=== PATIENT | female | born 1940 | race Caucasian/White ===

== ENCOUNTER 2017-02-01 11:18 | Emergency (ER) | payer OTHER, BC ==
[~2017-02-01] VITALS: Ht 162.6 cm; Wt 83.5 kg
[~2017-02-01 11:18] MED LIST: BALMEX 11.3% D113 GM TP; CHILD ASPIRIN81 M1 PO; DULOXETINE HCL20 MG PO; FERROUS SULFAT325 MG PO; FLONASE16 G1 BOTH NARES; KLOR-CON M2020 MEQ PO; LASIX80 MG PO; LISINOPRIL2.5 MG PO; LORATADINE10 M2 PO; LYRICA75 MG PO; METFORMIN HCL500 MG PO; METOPROLOL SUCC25 MG PO; MUCUS RELIEF200 MG PO; NYSTATIN15 GM TP; PROVENTIL,2.5 MG/3 M IH; RANITIDINE HCL150 MG PO; ROXICODONE5 MG PO; SENNA CONCENTR8.6 MG PO; TAMSULOSIN HCL0.4 MG PO; VITAMIN C250 M1 PO
[2017-02-01 11:59] LABS: EOSINOPHIL (%) 5.2 % (0-5); EOSINOPHIL COUNT 0.3 K/uL (0-0.3); HEMATOCRIT 25.4 % (36.0-46.0); IMMATURE GRANULOCYTE (%) 0.8 % (0.0-0.7); IMMATURE GRANULOCYTE COUNT 0.1 K/uL; LYMPHOCYTE COUNT 0.8 K/uL (1.0-2.8); MCH 27.6 PG (29.0-34.0); MCHC 30.7 G/DL (30.0-36.0); MCV 89.8 FL (83-99); MONOCYTE (%) 5.5 % (3-12); MONOCYTE COUNT 0.4 K/uL (0-0.8); NEUTROPHIL (%) 76.5 % (45-76); PLATELET COUNT 350 K/uL (156-360); RBC DIS.WIDTH-CV 15.7 % (11.8-14.6); RBC DIS.WIDTH-SD 51.4 % (39-53); RED BLOOD COUNT 2.83 M/uL (3.80-5.20); WHITE BLOOD COUNT 6.5 K/uL (4.1-10.2)
[2017-02-01 12:09] LABS: CHLORIDE 98 mEq/L (99-109); POTASSIUM 3.8 mEq/L (3.7-5.4); SODIUM 138 mEq/L (136-147)
[2017-02-01 12:11] LABS: GLUCOSE 155 mg/dL (70-99)
[2017-02-01 12:13] LABS: ANION GAP 11 MEQ/L (2-14); INTER. NORMALIZED RATIO 1.1; PROTHROMBIN TIME 11.7 (9.2-11.2); PTT 28.4 (25-32); TOTAL BILIRUBIN 0.6 mg/dL (0.0-1.0)
[2017-02-01 12:15] LABS: ALKALINE PHOSPHATASE 156 IU/L (3-129); GFR ESTIMATE (CALCULATED) 57 mL/min/
[2017-02-01 12:16] LABS: UREA NITROGEN (BUN) 22 mg/dL (9-23)
[2017-02-01 12:20] LABS: TROP-I INTERPRETATION NEGATIVE; TROPONIN-I 0.03 ng/mL (0.0-0.30)
[2017-02-01 12:41] LABS: ADD MIUA? NO; BILIRUBIN NEGATIVE; BLOOD NEGATIVE; COLOR YELLOW ((YELLOW)); GLUCOSE (STRIP) NEGATIVE; KETONES NEGATIVE; LEUKOCYTES NEGATIVE; NITRITE NEGATIVE; PROTEIN (STRIP) 30; UROBILINOGEN 0.2 MG/DL (0.2-1.0)
[2017-02-01 13:05] VITALS: BP 124/64
[2017-02-01 13:22] VITALS: BP 121/106
[2017-02-01 14:07] VITALS: BP 131/60
[2017-02-01 15:07] VITALS: BP 127/65
[2017-02-01 15:22] VITALS: BP 132/70
[2017-02-01 17:00] VITALS: BP 122/66
== END 2017-02-01 12:13 ==
LOC: EME 11:18 → EDOF 11:48 → EME 11:48 → EDOF 12:13
PROVIDERS: Physician Assistant
PROC: 30233N1 Transfusion of Nonautologous Red Blood Cells into Peripheral Vein, Percutaneous Approach (ICD-10-PCS; principal; 2017-02-01)
DX: D64.9 Anemia, unspecified (principal); R19.5 Other fecal abnormalities; I11.0 Hypertensive heart disease with heart failure; I50.9 Heart failure, unspecified; E11.9 Type 2 diabetes mellitus without complications; E78.5 Hyperlipidemia, unspecified; K21.9 Gastro-esophageal reflux disease without esophagitis; E03.9 Hypothyroidism, unspecified; I25.10 Atherosclerotic heart disease of native coronary artery without angina pectoris; Z95.1 Presence of aortocoronary bypass graft; Z95.2 Presence of prosthetic heart valve; Z79.84 Long term (current) use of oral hypoglycemic drugs; Z79.82 Long term (current) use of aspirin
CPT/HCPCS: 71010; 80053; 81003; 84484; 85025; 85610; 85730; 86850; 86900; 86901; 86920; 93005; 99281; 99285; P9016